=== PATIENT | female | born 1990 | race Caucasian/White ===

== ENCOUNTER → 2017-10-05 | Outpatient (CLI) | payer OTHER ==
[~2017-10-05] MED LIST: IBUP800 PO; RANI150 PO; Verotin-Gr Cap1 EACH PO
[2017-10-06 15:13] LABS: Source Cervix
== END ==
LOC: LAB 17:10
PROVIDERS: Registered Nurse Community Health
DX: Z12.4 Encounter for screening for malignant neoplasm of cervix (principal)
CPT/HCPCS: G0123